=== PATIENT | male | born 1950 | race Caucasian/White ===

== ENCOUNTER 2018-05-30 11:31 | Outpatient (REF) | payer MEDICARE, MEDICAID, SELFPAY ==
[2018-05-30 22:07] LABS: Anion Gap 8.1 mmol/L (3-11); CO2 30.9 mmol/L (21.0-32.0); Chloride 100 mmol/L (98-107); Potassium 4.7 mmol/L (3.5-5.1); Sodium 139 mmol/L (136-145); TSH (W/Ref FT4) 3.39 uIU/mL (0.358-3.74)
[2018-05-30 22:32] LABS: COMMENT (LAB VIEW ONLY) 71.93 mg/dL; Microalb ug/mg Crea 18.1 ug/mg Cr
== END 2018-05-30 11:51 ==
LOC: NCHCN 11:31
PROVIDERS: PCP Internal Medicine; Visit Provider Internal Medicine
DX: E11.9 Type 2 diabetes mellitus without complications (principal)
CPT/HCPCS: 80051; 82043; 82570; 84443

== ENCOUNTER 2018-06-11 12:22 | Emergency (ER) | payer MEDICARE, MEDICAID, SELFPAY ==
[2018-06-11 12:27] VITALS: BP 166/84; PULSE 111; RESP 16; TEMP 37.2; O2SAT 97
--- NOTE | 2018-06-11 12:31 | W.ED.GENAD ---
Discharge Plan Disposition Patient Disposition: HOME Condition: Fair Discharge Details Chief Complaint: HeadInjury Clinical Impression: Abrasion, multiple sites, Head trauma Primary Care Provider: Marlo High ED Provider: Janene Coates Home Meds and New Rx's Prescriptions: Continue citalopram 40 MG tablet 40 mg PO DAILY RF: 0 trazodone 150 MG tablet 100 mg PO DAILY RF: 0 lisinopril-hydrochlorothiazide 1 EACH tablet 1 tab-cap PO DAILY RF: 0 docusate sodium [Colace] 100 MG capsule 100 mg PO TID PRN PRNRF: 0 multivitamin with minerals [Multiple Vitamin-Minerals] 1 EACH tablet 1 ea PO DAILY RF: 0 Discharge Instructions Instructions: Head Injury (ED), Abrasion (ED) Additional Instructions: Encourage hydration. Please keep wounds clean and dry. May was with running water but do not soak as this will increase your risk of infection. If Henry develops headache, visual changes, nausea or vomiting, change in mental status or other new/worsening symptoms please seek care immediately once again. Please follow up with primary care within the next week for reevaluation . Referrals: Marlo High [Primary Care Provider] - Discharge Data Discharge Date/Time-TO BE ENTERED AT DEPARTURE: 06/11/18 14:07 Medical Decision Making Patient is 67-year-old cognitively delayed male, accompanied by home care provider, with chief complaint of head injury. Patient had a witnessed fall at home when his care provider reports that he tripped coming down steps. Some within the last few fell forward striking the right aspect of the front of his head. No loss of consciousness. Neurologic mentation. No vomiting. He reports that he is feeling quite well. Denies any pain. Patient continues to request [place] is a Band-Aid. Patient is not on any anticoagulants. Acting at baseline per home care provider. On exam, he is noted to have area of swelling along the right side of his head with superficial abrasions. No active bleeding. Given the age of the patient and recommend injury, we will obtain CT to evaluate for possible bleed. Neuro exam is intact. He is moving all extremities well. Is also noted to have a superficial abrasion on the right knee. Patient denies any pain in the hand or knee. Full range of motion of all extremities. Ambulating well. Patient went to radiology for CT exam. However, while beginning exam, he began moving frequently. Secondary to patient's cognitive delay is unable to sit still for the CT scan Per the [place] head CT rule, only the patient's age is unable to rule out need for CT on [place] head CT rule. Did discuss sedating the patient with his home care provider. We discussed risk/benefits of this and prefer to watch and wait at this time. Patient will be given food and monitored in our department. Patient remained in the department for another hour and a half. Is eating well. Continues to deny any nausea vomiting. His wounds were cleansed and dressed by nursing staff. He continues to act as baseline per home care provider. At this point, + care provider and the patient are requesting discharge. Patient is very antsy to leave, home care provider reports that this is typical for him. He has been appropriate cognitively at baseline since arrival. He is well cared for and has somebody staying with him so that if he develops new or worsening symptoms may return at any point. At this point, I believe the risks associated with sedating patient outweighs the expected benefits. We discussed new/worsening symptoms once he care urgently once again. Advise follow-up with primary care. We discussed signs symptoms of infection of wounds when to seek care urgently once again. Discussed wound care. All the questions and concerns were addressed in agreement this plan. HPI General Mode of arrival: wheelchair. Date/Time Provider Initiated Documentation: 06/11/18 12:25. Limitations to Documentation: no limitations. Information obtained by: patient and family (home care provider). History of Present Illness 67 year old M presents to the emergency department with the chief complaint of head injury, described as mild, with intensity rated at 1 (denies any pain at this time). and is localized to the head, upper extremity and lower extremity. Patient reports no radiation. Patient started experiencing this hour(s) (1) and it has been constant. No exacerbating factors reported . Patient notes no other symptoms. and rash (abrasions to affected areas); denies confusion, chest pain, cough, fever/chills, headaches, loss of appetite, malaise, nausea/vomiting, shortness of breath and weakness. Patient did receive the following treatments prior to arrival, none Related Data Home Medications Medication Instructions Recorded Confirmed citalopram 40 mg PO DAILY tab-cap 08/09/16 06/11/18 lisinopril-hydrochlorothiazide 1 tab-cap PO DAILY tab-cap 08/09/16 06/11/18 trazodone 100 mg PO DAILY tab-cap 08/09/16 06/11/18 docusate sodium [Colace] 100 mg PO TID PRN PRN cap 07/28/17 06/11/18 multivitamin with minerals 1 ea PO DAILY 02/01/18 06/11/18 [Multiple Vitamin-Minerals] Previous Rx's Medication Instructions Recorded docusate sodium [Colace] 100 mg PO TID PRN PRN cap 07/28/17 Allergies Allergy/AdvReac Type Severity Reaction Status Date / Time No Known Drug Allergies Allergy Unverified 02/01/18 14:55 Review of Systems Constitutional Reports as per HPI, Denies frequent falls, Denies headache(s) and Denies weakness Eyes Denies change in vision, Denies diplopia and Denies irritation ENT Denies abnormal hearing, Denies vertigo and Denies headache(s) Cardiovascular Reports as per HPI, Denies chest pain and Denies syncope Respiratory Reports as per HPI, Denies chest congestion and Denies cough Gastrointestinal Reports as per HPI, Denies change in bowel habits, Denies diarrhea, Denies nausea and Denies vomiting Genitourinary Denies urinary incontinence Musculoskeletal Reports as per HPI, Denies abnormal gait, Denies back pain, Denies myalgias, Denies arthralgias and Denies numbness Integumentary/Breasts Reports as per HPI and Reports wounds (abrasions to right side of forehead, dorsal side of right hand and anterior aspect of right knee) Neurologic Reports as per HPI, Denies abnormal hearing, Denies abnormal movements, Denies abnormal speech, Denies abnormal gait, Denies behavioral changes, Denies confusion, Denies vertigo, Denies syncope, Denies frequent falls, Denies headache(s), Denies lack of coordination, Denies focal weakness, Denies numbness, Denies radicular pain and Denies weakness Psychiatric Denies behavioral changes and Denies confusion [facility] Medical History Cognitive developmental delay Depression Hypertension Social History Smoking/Tobacco Use Status: Never Exam Const General: cooperative, healthy appearing, comfortable, no acute distress, well developed and well groomed Nutritional Appearance: average body habitus and well nourished Orientation: alert, awake and oriented x3 [facility] Head: no palpable skull fracture, normocephalic, signs of trauma (Patient is superficial abrasion to the right side of his forehead. This is not actively bleeding. No deep wounds. No signs of fracture, otherwise atraumatic), abrasion, no acral cyanosis, no Johnson's sign, no hematomas, no lacerations, no occipital foramen tenderness, no palpable skull fracture, no raccoon eyes, no scalp tenderness and No periorbital ecchymosis Ears: hearing grossly normal bilaterally, external ears normal and TM's normal bilaterally General nose exam: external nose normal Face and sinus: normal facial exam Mouth: oral mucosae normal, lip normal, tongue normal, oropharynx normal and moist mucous membranes Eyes General: appearance normal, both eyes and all related structures Alignment and Position: alignment normal Periorbital: periorbital findings normal Eyelids: eyelids normal Conjunctivae: conjunctivae normal Sclera: sclerae normal Pupils: PERRL EOM: EOM intact bilaterally Neck Neck: normal visual inspection, full ROM, no meningeal signs, trachea midline, supple and nontender Chest Chest: normal inspection of the chest and normal palpation of entire chest wall Resp Effort & Inspection: normal respiratory effort, able to speak in complete sentences and no respiratory distress Auscultation: clear to auscultation bilaterally Cardio Rate: regular rate Rhythm: regular rhythm Heart Sounds: S1 normal and S2 normal GI Inspection: normal to inspection, no abdominal wall ecchymosis, no edema and non-distended Palpation: soft, no hepatosplenomegaly, not firm, no guarding, not rigid and nontender Back/Spine/Pelvis Back: no CVA tenderness Cervical Spine: normal cervical lordosis, cervical ROM normal, No cervical muscular tenderness, No pain with cervical ROM and No cervical spasm Thoracic/Lumbar Spine: thoracic and lumbar spine normal to inspection Skin Trauma: abrasion (Patient has abrasion to the right side of his forehead. Nose not actively bleeding. Also has superficial abrasion to the dorsal aspect of the right hand as well as the anterior aspect of the right knee) Neuro General: alert, awake and oriented x3 Cranial Nerves: CN's II-XI intact bilaterally Cognition: normal cognition Speech: speech normal Gait: normal gait Motor: muscle tone normal throughout and strength 5/5 throughout Sensory Exam: no sensory deficits noted DTR's: Rt Triceps: 2+, Lt Triceps: 2+, Rt Brachioradialis: 2+, Lt Brachioradialis: 2+, Rt Patellar: 2+, Lt Patellar: 2+, Rt Ankle: 2+ and Lt Ankle: 2+ Coordination: [id number] test normal and [id number] test normal Extrem General: normal to inspection (Extremities are without signs of pain. 5 out of 5 strength in all extremities. Patient does have abrasions as noted above.), full ROM, normal capillary refill, no joint enlargement, no pedal edema, no calf tenderness and normal gait Psych Appearance: grossly normal and well kempt Mental Status: mental status grossly normal Speech and Movement: speech and movement normal Mood: congruent mood
--- NOTE | 2018-06-11 12:41 | ED.GENADUL_ITS ---
Discharge Plan Disposition Patient Disposition: HOME Condition: Fair Discharge Details Chief Complaint: HeadInjury Clinical Impression: Abrasion, multiple sites, Head trauma Primary Care Provider: Marlo High ED Provider: Janene Coates Home Meds and New Rx's Prescriptions: Continue citalopram 40 MG tablet 40 mg PO DAILY RF: 0 trazodone 150 MG tablet 100 mg PO DAILY RF: 0 lisinopril-hydrochlorothiazide 1 EACH tablet 1 tab-cap PO DAILY RF: 0 docusate sodium [Colace] 100 MG capsule 100 mg PO TID PRN PRNRF: 0 multivitamin with minerals [Multiple Vitamin-Minerals] 1 EACH tablet 1 ea PO DAILY RF: 0 Discharge Instructions Instructions: Head Injury (ED), Abrasion (ED) Additional Instructions: Encourage hydration. Please keep wounds clean and dry. May was with running water but do not soak as this will increase your risk of infection. If Henry develops headache, visual changes, nausea or vomiting, change in mental status or other new/worsening symptoms please seek care immediately once again. Please follow up with primary care within the next week for reevaluation . Referrals: Marlo High [Primary Care Provider] - Discharge Data Discharge Date/Time-TO BE ENTERED AT DEPARTURE: 06/11/18 14:07 Medical Decision Making Patient is 67-year-old cognitively delayed male, accompanied by home care provider, with chief complaint of head injury. Patient had a witnessed fall at home when his care provider reports that he tripped coming down steps. Some within the last few fell forward striking the right aspect of the front of his head. No loss of consciousness. Neurologic mentation. No vomiting. He reports that he is feeling quite well. Denies any pain. Patient continues to request [place] is a Band-Aid. Patient is not on any anticoagulants. Acting at baseline per home care provider. On exam, he is noted to have area of swelling along the right side of his head with superficial abrasions. No active bleeding. Given the age of the patient and recommend injury, we will obtain CT to evaluate for possible bleed. Neuro exam is intact. He is moving all extremities well. Is also noted to have a superficial abrasion on the right knee. Patient denies any pain in the hand or knee. Full range of motion of all extremities. Ambulating well. Patient went to radiology for CT exam. However, while beginning exam, he began moving frequently. Secondary to patient's cognitive delay is unable to sit still for the CT scan Per the [place] head CT rule, only the patient's age is unable to rule out need for CT on [place] head CT rule. Did discuss sedating the patient with his home care provider. We discussed risk/benefits of this and prefer to watch and wait at this time. Patient will be given food and monitored in our department. Patient remained in the department for another hour and a half. Is eating well. Continues to deny any nausea vomiting. His wounds were cleansed and dressed by nursing staff. He continues to act as baseline per home care provider. At this point, + care provider and the patient are requesting discharge. Patient is very antsy to leave, home care provider reports that this is typical for him. He has been appropriate cognitively at baseline since arrival. He is well cared for and has somebody staying with him so that if he develops new or worsening symptoms may return at any point. At this point, I believe the risks associated with sedating patient outweighs the expected benefits. We discussed new/worsening symptoms once he care urgently once again. Advise follow-up with primary care. We discussed signs symptoms of infection of wounds when to seek care urgently once again. Discussed wound care. All the questions and concerns were addressed in agreement this plan. HPI General Mode of arrival: wheelchair . Date/Time Provider Initiated Documentation: 06/11/18 12:25 . Limitations to Documentation: no limitations . Information obtained by: patient and family (home care provider) . History of Present Illness 67 year old M presents to the emergency department with the chief complaint of head injury, described as mild, with intensity rated at 1 (denies any pain at this time). and is localized to the head, upper extremity and lower extremity. Patient reports no radiation. Patient started experiencing this hour(s) (1) and it has been constant. No exacerbating factors reported . Patient notes no other symptoms. and rash (abrasions to affected areas); denies confusion, chest pain, cough, fever/chills, headaches, loss of appetite, malaise , nausea/vomiting, shortness of breath and weakness. Patient did receive the following treatments prior to arrival, none Related Data Home Medications Medication Instructions Recorded Confirmed citalopram 40 mg PO DAILY tab-cap 08/09/16 06/11/18 lisinopril-hydrochlorothiazide 1 tab-cap PO DAILY tab-cap 08/09/16 06/11/18 trazodone 100 mg PO DAILY tab-cap 08/09/16 06/11/18 docusate sodium [Colace] 100 mg PO TID PRN PRN cap 07/28/17 06/11/18 multivitamin with minerals 1 ea PO DAILY 02/01/18 06/11/18 [Multiple Vitamin-Minerals] Previous Rx's Medication Instructions Recorded docusate sodium [Colace] 100 mg PO TID PRN PRN cap 07/28/17 Allergies Allergy/AdvReac Type Severity Reaction Status Date / Time No Known Drug Allergies Allergy Unverified 02/01/18 14:55 Review of Systems Constitutional Reports as per HPI, Denies frequent falls, Denies headache(s) and Denies weakness Eyes Denies change in vision, Denies diplopia and Denies irritation ENT Denies abnormal hearing, Denies vertigo and Denies headache(s) Cardiovascular Reports as per HPI, Denies chest pain and Denies syncope Respiratory Reports as per HPI, Denies chest congestion and Denies cough Gastrointestinal Reports as per HPI, Denies change in bowel habits, Denies diarrhea, Denies nausea and Denies vomiting Genitourinary Denies urinary incontinence Musculoskeletal Reports as per HPI, Denies abnormal gait, Denies back pain, Denies myalgias, Denies arthralgias and Denies numbness Integumentary/Breasts Reports as per HPI and Reports wounds (abrasions to right side of forehead, dorsal side of right hand and anterior aspect of right knee) Neurologic Reports as per HPI, Denies abnormal hearing, Denies abnormal movements, Denies abnormal speech, Denies abnormal gait, Denies behavioral changes, Denies confusion, Denies vertigo, Denies syncope, Denies frequent falls, Denies headache(s), Denies lack of coordination, Denies focal weakness, Denies numbness , Denies radicular pain and Denies weakness Psychiatric Denies behavioral changes and Denies confusion [facility] Medical History Cognitive developmental delay Depression Hypertension Social History Smoking/Tobacco Use Status: Never Exam Const General: cooperative, healthy appearing, comfortable, no acute distress, well developed and well groomed Nutritional Appearance: average body habitus and well nourished Orientation: alert, awake and oriented x3 [facility] Head: no palpable skull fracture, normocephalic, signs of trauma (Patient is superficial abrasion to the right side of his forehead. This is not actively bleeding. No deep wounds. No signs of fracture, otherwise atraumatic), abrasion, no acral cyanosis, no Johnson's sign, no hematomas, no lacerations, no occipital foramen tenderness, no palpable skull fracture, no raccoon eyes, no scalp tenderness and No periorbital ecchymosis Ears: hearing grossly normal bilaterally, external ears normal and TM's normal bilaterally General nose exam: external nose normal Face and sinus: normal facial exam Mouth: oral mucosae normal, lip normal, tongue normal, oropharynx normal and moist mucous membranes Eyes General: appearance normal, both eyes and all related structures Alignment and Position: alignment normal Periorbital: periorbital findings normal Eyelids: eyelids normal Conjunctivae: conjunctivae normal Sclera: sclerae normal Pupils: PERRL EOM: EOM intact bilaterally Neck Neck: normal visual inspection, full ROM, no meningeal signs, trachea midline, supple and nontender Chest Chest: normal inspection of the chest and normal palpation of entire chest wall Resp Effort & Inspection: normal respiratory effort, able to speak in complete sentences and no respiratory distress Auscultation: clear to auscultation bilaterally Cardio Rate: regular rate Rhythm: regular rhythm Heart Sounds: S1 normal and S2 normal GI Inspection: normal to inspection, no abdominal wall ecchymosis, no edema and non -distended Palpation: soft, no hepatosplenomegaly, not firm, no guarding, not rigid and nontender Back/Spine/Pelvis Back: no CVA tenderness Cervical Spine: normal cervical lordosis, cervical ROM normal, No cervical muscular tenderness, No pain with cervical ROM and No cervical spasm Thoracic/Lumbar Spine: thoracic and lumbar spine normal to inspection Skin Trauma: abrasion (Patient has abrasion to the right side of his forehead. Nose not actively bleeding. Also has superficial abrasion to the dorsal aspect of the right hand as well as the anterior aspect of the right knee) Neuro General: alert, awake and oriented x3 Cranial Nerves: CN's II-XI intact bilaterally Cognition: normal cognition Speech: speech normal Gait: normal gait Motor: muscle tone normal throughout and strength 5/5 throughout Sensory Exam: no sensory deficits noted DTR's: Rt Triceps: 2+, Lt Triceps: 2+, Rt Brachioradialis: 2+, Lt Brachioradialis: 2+, Rt Patellar: 2+, Lt Patellar: 2+, Rt Ankle: 2+ and Lt Ankle : 2+ Coordination: [id number] test normal and [id number] test normal Extrem General: normal to inspection (Extremities are without signs of pain. 5 out of 5 strength in all extremities. Patient does have abrasions as noted above.), full ROM, normal capillary refill, no joint enlargement, no pedal edema, no calf tenderness and normal gait Psych Appearance: grossly normal and well kempt Mental Status: mental status grossly normal Speech and Movement: speech and movement normal Mood: congruent mood
[2018-06-11 14:07] VITALS: BP 139/87; PULSE 102; RESP 18; TEMP 36.9; O2SAT 96
== END 2018-06-11 14:07 | disposition home or self-care (01) ==
LOC: ER 14:12
PROVIDERS: Emergency Provider Physician Assistant; PCP Internal Medicine
DX: S09.90XA Unspecified injury of head, initial encounter (principal); S80.211A Abrasion, right knee, initial encounter; S60.511A Abrasion of right hand, initial encounter; S00.81XA Abrasion of other part of head, initial encounter; W10.8XXA Fall (on) (from) other stairs and steps, initial encounter; E11.9 Type 2 diabetes mellitus without complications; I10 Essential (primary) hypertension
CPT/HCPCS: 99284

== ENCOUNTER 2019-02-16 12:33 | Outpatient (REF) | payer MEDICARE, MEDICAID, SELFPAY ==
[2019-02-16 20:48] LABS: Anion Gap 7.3 mmol/L (3-11); BUN 22 mg/dL (7-18); CO2 31.7 mmol/L (21.0-32.0); Calcium 9.5 mg/dL (8.5-10.1); Calculated LDL 99; Chloride 99 mmol/L (98-107); Cholesterol 159 mg/dL (50-200); Glucose 123 mg/dL (70-100); HDL Cholesterol 43 mg/dL (40-60); Potassium 4.2 mmol/L (3.5-5.1); Sodium 138 mmol/L (136-145); Triglyceride 89 mg/dL (30-150)
[2019-02-16 20:54] LABS: COMMENT (LAB VIEW ONLY) 38.04 mg/dL; Microalb ug/mg Crea 36.8 ug/mg Cr
[2019-02-16 21:04] LABS: Hemoglobin A1C 6.9 % (4.5-6.2)
== END 2019-02-16 12:53 ==
LOC: NCHCN 12:33
PROVIDERS: PCP Internal Medicine; Visit Provider Internal Medicine
DX: E11.9 Type 2 diabetes mellitus without complications (principal); I10 Essential (primary) hypertension
CPT/HCPCS: 80048; 80061; 83721; 82043; 82570; 83036

== ENCOUNTER 2020-03-14 21:08 | Outpatient (REF) | payer MEDICARE, MEDICAID, SELFPAY ==
[2020-03-14 21:59] LABS: BUN 27 mg/dL (7-18); CREATININE 1.07 mg/dL (0.70-1.30); Calcium 9.6 mg/dL (8.5-10.1); Calculated LDL 120 mg/dL (<100); Chloride 96 mmol/L (98-107); Cholesterol 192 mg/dL (<200); Glucose 247 mg/dL (74-106); HDL Cholesterol 34 mg/dL (40-60); Potassium 4.5 mmol/L (3.5-5.1); Sodium 133 mmol/L (136-145); Triglyceride 190 mg/dL (<150)
[2020-03-14 22:04] LABS: COMMENT (LAB VIEW ONLY) 28.75 mg/dL; Microalb ug/mg Crea 37.2 ug/mg Cr
== END 2020-03-14 21:28 ==
LOC: NCHCN 21:08
PROVIDERS: PCP Internal Medicine; Visit Provider Internal Medicine
DX: E11.9 Type 2 diabetes mellitus without complications (principal)
CPT/HCPCS: 80048; 80061; 82043; 82570